=== PATIENT | female | born 1995 | race Two or more races ===

== ENCOUNTER 2020-10-17 08:37 | Emergency (ER) | payer OTHER ==
[~2020-10-17] VITALS: Ht 149.9 cm; Wt 54.7 kg
[2020-10-17] MEDS ORDERED: PRENATALS (08:57)
--- NOTE | 2020-10-17 09:02 | NUR ---
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 RN PROVIDED PT WITH URINE COLLECTION CUP. PT AMBULATED TO RESTROOM TO TRY AND PROVIDE A URINE SAMPLE.
[2020-10-17] MEDS ORDERED: L.E.T SOLUTION TP ONE ×2 (09:23→10:00)
[2020-10-17] MEDS ORDERED: LIDOCAINE-MPF 1%, 5ML ONE (09:23)
--- NOTE | 2020-10-17 09:50 | NUR ---
pt states some numbness noted where LET was applied. pa aware. will ctm.
[2020-10-17] MEDS ORDERED: LIDOCAINE-MPF 1%, 5ML INFIL ONE (10:00)
[2020-10-17 10:45] VITALS: BP 92/56
== END 2020-10-17 10:47 | disposition home or self-care (01) ==
LOC: ED 09:09
DX: N75.1 Abscess of Bartholin's gland (principal)
CPT/HCPCS: 56420; 99284